=== PATIENT | male | born 1975 ===

== ENCOUNTER → 2018-06-18 10:13 | Outpatient (CLI) | payer SELFPAY ==
[2018-06-21 11:01] LABS: API SURVEY SYPHILIS SEROL. NONREACTIVE (NONREACTIVE)
[2018-06-21 11:01] LABS: API SURVEY SYPHILIS SEROL. NONREACTIVE (NONREACTIVE)
[2018-06-24 01:34] LABS: API SURVEY SYPHILIS SEROL. REACTIVE (NONREACTIVE)
[2018-06-24 01:34] LABS: API SURVEY SYPHILIS SEROL. REACTIVE (NONREACTIVE)
[2018-06-24 01:35] LABS: API SURVEY SYPHILIS SEROL. REACTIVE (NONREACTIVE)
== END ==
PROVIDERS: Visit Provider Pathology Anatomic Pathology & Clinical Pathology
DX: Z00.00 Encounter for general adult medical examination without abnormal findings (principal)